=== PATIENT | female | born 1995 | race Caucasian/White ===

== ENCOUNTER 2017-08-28 20:38 | Emergency (ER) | payer OTHER ==
[~2017-08-28] VITALS: Ht 167.6 cm; Wt 90.7 kg
[~2017-08-28 20:38] MED LIST: LEXAPRO5 MG; SEROQUEL 50 MG50 MG
[2017-08-28] MEDS ORDERED: LAMICTAL100 MG (20:54)
[2017-08-28] MEDS ORDERED: CLARITIN10 MG PO (21:10)
[2017-08-28] MEDS ORDERED: AMOXICILLIN 50500 MG PO (21:10)
[2017-08-28 21:25] VITALS: BP 153/101
== END 2017-08-28 21:25 | disposition home or self-care (01) ==
LOC: M.ERS 20:38
DX: J02.9 Acute pharyngitis, unspecified (principal); F32.9 Major depressive disorder, single episode, unspecified; F41.9 Anxiety disorder, unspecified

== ENCOUNTER 2018-02-18 18:26 | Emergency (ER) | payer OTHER ==
[~2018-02-18] VITALS: Ht 167.6 cm; Wt 81.7 kg
[~2018-02-18 18:26] MED LIST changes: +AMOXICILLIN 50500 MG PO; +CLARITIN10 MG PO; +LAMICTAL100 MG
[2018-02-18] MEDS ORDERED: VISTARIL 25 MG25 M1 PO (18:36)
[2018-02-18] MEDS ORDERED: TRILEPTAL150 MG PO (18:36)
[2018-02-18] MEDS ORDERED: MEDROLDOSEPACK PO (19:03)
[2018-02-18 19:08] VITALS: BP 147/94
== END 2018-02-18 19:09 | disposition home or self-care (01) ==
LOC: M.ERS 18:26
DX: J02.9 Acute pharyngitis, unspecified (principal); F32.9 Major depressive disorder, single episode, unspecified; F41.9 Anxiety disorder, unspecified; Z88.8 Allergy status to other drugs, medicaments and biological substances

== ENCOUNTER 2018-08-21 00:39 | Emergency (ER) | payer BC ==
[~2018-08-21] VITALS: Ht 167.6 cm; Wt 86.2 kg
[~2018-08-21 00:39] MED LIST changes: +MEDROLDOSEPACK PO; +TRILEPTAL150 MG PO; +VISTARIL 25 MG25 M1 PO
[2018-08-21] MEDS ORDERED: LAMICTAL100 MG PO (00:51)
[2018-08-21] MEDS ORDERED: PROPRANOLOL 1010 MG PO (00:52)
[2018-08-21] MEDS ORDERED: GABAPENTIN 100100 MG PO (00:52)
[2018-08-21] MEDS ORDERED: TUSSIONEX PENN115 ML PO (01:35)
[2018-08-21 01:44] VITALS: BP 132/74
== END 2018-08-21 01:44 | disposition home or self-care (01) ==
LOC: M.ERS 00:39
DX: J06.9 Acute upper respiratory infection, unspecified (principal); F32.9 Major depressive disorder, single episode, unspecified; F41.9 Anxiety disorder, unspecified; Z88.8 Allergy status to other drugs, medicaments and biological substances